=== PATIENT | male | born 1980 | race American Indian/Alaskan Native ===

== ENCOUNTER 2016-04-10 16:47 | Emergency (ER) | payer SELFPAY ==
[2016-04-10 17:23] VITALS: BP 131/80
== END 2016-04-10 23:15 | disposition left against medical advice (07) ==
LOC: ED 16:47
DX: H57.8 Other specified disorders of eye and adnexa (principal); F17.200 Nicotine dependence, unspecified, uncomplicated; F12.90 Cannabis use, unspecified, uncomplicated; Z53.21 Procedure and treatment not carried out due to patient leaving prior to being seen by health care provider

== ENCOUNTER 2016-04-11 07:47 | Emergency (ER) | payer SELFPAY ==
[2016-04-11 08:00] VITALS: BP 131/91
--- NOTE | 2016-04-11 08:16 | Emergency Department Report ---
[facility] Chief Complaint: Eye Problems Stated Complaint: PINK EYE Time Seen by Provider: 04/11/16 08:11 Symptoms: Yes Eye Itching, Yes Eye Redness, Yes Mucous Drainage, No Preceding URI, No Contact Lens Use, No Trauma, No Fever, No Headache Other History: 35-year-old male comes in for complaint of right eye drainage itchiness feels like something is in it. He denies any trauma denies any purulent discharge reports watery discharge from right eye. Denies any URI symptoms no headache. ED Review of Systems ROS: Stated complaint: PINK EYE Other details as noted in HPI Comment: All other systems reviewed and negative ENT: as per HPI, other (right eye itchy, redness, clear discharge and Lainey eyelashes) ED Past Medical Hx - Past Medical History Previous Medical History?: No - Surgical History Past Surgical History?: No - Social History Smoking Status: Current Every Day Smoker Substance Use Type: None - Medications Home Medications: Home Medications Medication Instructions Recorded Confirmed Last Taken Type Erythromycin [Erythromycin Ophth 1 strip OD QID #1 tube 04/11/16 Unknown Rx Oint] [facility] Exam - Exam General: Vital signs noted. No distress. Alert and acting appropriately. Eye Exam: Right Injection, Right EOMI HEENT: No Nasal Congestion, No Pharyngeal Erythema Remainder of HEENT: Normal Lungs: No Cough, No Nasal Flaring, No Retractions, No Use of Accessory Muscles ED Course Vital Signs 04/11/16 07:56 Temperature 97.9 F Pulse Rate 72 Respiratory 20 Rate Blood Pressure 131/91 O2 Sat by Pulse 100 Oximetry ED Medical Decision Making - Medical Decision Making He has been evaluated by this provider in fast track. Based on examination and history it appears the patient has a conjunctivitis of the right eye. We will treat patient with erythromycin ointment one strip to the right eye every 6 hours. Recommend patient to wash his hands before and after placing the medication in his eye. Discussed the patient is highly contagious so please practice good handwashing. Patient verbalized understanding. Critical care attestation.: If time is entered above; I have spent that time in minutes in the direct care of this critically ill patient, excluding procedure time. ED Disposition Clinical Impression: Acute atopic conjunctivitis of right eye Disposition: DISCHARGED TO HOME OR SELFCARE Is pt being admited?: No Does the pt Need Aspirin: No Condition: Stable Instructions: Conjunctivitis (ED) Additional Instructions: Used the eye ointment for 7 days. The patient is no improvement or gets worse please follow up with her primary care provider and will be advised to use a follow-up with ophthalmology for second follow-up of your eye. In very important to wash her hands before and after applying your medication. Prescriptions: Erythromycin [Erythromycin Ophth Oint] 1 strip OD QID #1 tube Referrals: PRIMARY CAREMD [Primary Care Provider] - 3-5 Days LIV VALDIVIA MD [Staff Physician] - 3-5 Days TOM HIGHTOWER MD [Staff Physician] - 3-5 Days Forms: Work/School Release Form(ED)
== END 2016-04-11 08:25 | disposition home or self-care (01) ==
LOC: ED 07:47
DX: H10.11 Acute atopic conjunctivitis, right eye (principal); F17.200 Nicotine dependence, unspecified, uncomplicated
CPT/HCPCS: 99282

== ENCOUNTER 2016-05-01 10:14 | Emergency (ER) | payer MEDICAID, OTHER ==
[2016-05-01 10:26] VITALS: BP 151/92
[2016-05-01] MEDS ORDERED: FUL-GLO OP ONE ×2 (14:00→14:01)
[2016-05-01] MEDS ORDERED: MOTRIN PO ONE (14:46)
--- NOTE | 2016-05-01 14:46 | Emergency Department Report ---
[facility] Chief Complaint: Eye Problems Stated Complaint: RT EYE PAIN/SWOLLEN Time Seen by Provider: 05/01/16 13:54 Duration: 2 Days Severity: moderate Symptoms: Yes Eye Itching, Yes Eye Redness, Yes Eye Pain, No Mucous Drainage, No Purulent Drainage, No Blurred Vision, No Preceding URI, No H/O Allergic Rhinitis, No Contact Lens Use, No Trauma, No Fever, No Headache ED Review of Systems ROS: Stated complaint: RT EYE PAIN/SWOLLEN Other details as noted in HPI Constitutional: denies: chills, fever Eyes: denies: eye pain, eye discharge, vision change ENT: denies: ear pain, throat pain Respiratory: denies: cough, shortness of breath, wheezing Cardiovascular: denies: chest pain, palpitations Endocrine: no symptoms reported Gastrointestinal: denies: abdominal pain, nausea, diarrhea Genitourinary: denies: urgency, dysuria Musculoskeletal: denies: back pain, joint swelling, arthralgia Skin: denies: rash, lesions Neurological: denies: headache, weakness, paresthesias Psychiatric: denies: anxiety, depression Hematological/Lymphatic: denies: easy bleeding, easy bruising ED Past Medical Hx - Past Medical History Previous Medical History?: No - Surgical History Past Surgical History?: No - Social History Smoking Status: Current Every Day Smoker Substance Use Type: Alcohol, Marijuana - Medications Home Medications: Home Medications Medication Instructions Recorded Confirmed Last Taken Type Erythromycin [Erythromycin Ophth 1 strip OD QID #1 tube 04/11/16 Unknown Rx Oint] Tobramycin 0.3% [Tobrex] 1 drop OU Q8HR #1 bottle 05/01/16 Unknown Rx [facility] Exam - Exam General: Vital signs noted. No distress. Alert and acting appropriately. El movements intact, no signs of orbital cellulitis, chemosis injection and redness of right sided sclera. Vision 20/20 bilaterally 20 out of 30 right eye 20 out of 20 left eye Eye Exam: Right Injection, Right Chemosis, Right Fluorescein Uptake (small corneal abrasion on exam right cornea horizontal not over the pupil), Neither Abnormal Pupil, Neither EOMI, Neither Eye Foreign Body, Neither Lid Foreign Body , Neither Mucous Discharge, Neither Purulent Discharge, Neither Fluorescein Uptake (slit lamp), Neither Cell/Flare (slit lamp), Neither Corneal Edema, Neither Photophobia HEENT: No Nasal Congestion, No Pharyngeal Erythema Remainder of HEENT: Normal Lungs: Yes Clear Lung Sounds, Yes Good Air Exchange, No Wheezes, No Stridor, No Cough, No Nasal Flaring, No Retractions, No Use of Accessory Muscles ED Course Vital Signs 05/01/16 10:18 Temperature 98.5 F Pulse Rate 85 Respiratory 17 Rate Blood Pressure 151/92 O2 Sat by Pulse 100 Oximetry ED Medical Decision Making - Medical Decision Making A/P: Corneal abrasion 1-tobramycin eyedrops, Motrin 600 when necessary 2-tetanus update 3-I advised patient to follow up as soon as possible with ophthalmology , i gave patient referral and advised him to call as soon as possible for appointment 4-vision fully intact, intraocular pressure is 16 right eye checked 3, left eye 13 checks 3. Mall amount of uptake on fluorescein staining not over the pupil Critical care attestation.: If time is entered above; I have spent that time in minutes in the direct care of this critically ill patient, excluding procedure time. ED Disposition Clinical Impression: Corneal abrasion, right Qualifiers: Encounter type: initial encounter Qualified Code(s): S05.01XA - Injury of conjunctiva and corneal abrasion without foreign body, right eye, initial encounter Disposition: DISCHARGED TO HOME OR SELFCARE Is pt being admited?: No Does the pt Need Aspirin: No Condition: Stable Instructions: Corneal Abrasion (ED) Prescriptions: Tobramycin 0.3% [Tobrex] 1 drop OU Q8HR #1 bottle Time of Disposition: 14:44
[2016-05-01] MEDS ORDERED: BOOSTRIX IM ONE (14:47)
== END 2016-05-01 15:00 | disposition home or self-care (01) ==
LOC: ED 10:14
DX: S05.01XA Injury of conjunctiva and corneal abrasion without foreign body, right eye, initial encounter (principal); F17.200 Nicotine dependence, unspecified, uncomplicated; F12.10 Cannabis abuse, uncomplicated; X58.XXXA Exposure to other specified factors, initial encounter; Y93.89 Activity, other specified; Y99.8 Other external cause status; Y92.89 Other specified places as the place of occurrence of the external cause
CPT/HCPCS: 90471; 90715